=== PATIENT | female | born 1950 | race African-American/Black ===

== ENCOUNTER 2018-03-18 18:50 | Emergency (ER) | payer OTHER ==
[~2018-03-18] VITALS: Ht 162.6 cm; Wt 83.9 kg
--- NOTE | ~2018-03-18 | EKG ---
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: WILLAM : 1950 Requested By: America Maria Order Number: [id number] MD: Jun Perez Measurements Intervals Roff Rate: 79 P: 53 NH: 170 QRS: -24 QRSD: 86 T: 22 QT: 391 QTc: 449 Interpretive Statements Sinus rhythm Left ventricular hypertrophy Nonspecific T wave abnormality Compared to ECG 01/10/2017 12:27:26 No significant change was found Electronically Signed On 03-19-2018 16:37:35 CDT by Jun Perez [email or web address] <ELECTRONICALLY SIGNED> By: Jun Perez MD, [facility] 03/19/18 1637 1912 12 Jun Perez MD, FACC /EPI
[~2018-03-18 18:50] MED LIST: ANTIVERT25 MG PO; AVELOX 400 MG400 MG PO; NOHOMEMEDICATIONS; PROVENTIL INH; ZOFRAN ODT4 MG PO
[2018-03-18 19:47] LABS: ABSOLUTE NEUTROPHILS 7.2 thou/uL (1.4-8.2); BASOPHILS 0.2 % (0.0-2.0); EOSINOPHILS 1.2 % (0.0-3.0); HEMATOCRIT 36.8 % (37.0-47.0); HEMOGLOBIN 11.8 gm/dL (12.0-15.0); LYMPHOCYTES 25.6 % (24.0-44.0); MCH 25.5 pg (26.0-34.0); MCHC 32.2 g/dL (28.0-37.0); MCV 79.3 fL (80.0-100.0); MONOCYTES 5.4 % (1.0-8.0); PLATELET COUNT 351 thou/uL (150-400); POLYS 67.6 % (36.0-66.0); RBC 4.64 mil/uL (4.20-5.00); WBC 10.6 thou/uL (4.0-11.0)
[2018-03-18 19:48] LABS: URINE BILIRUBIN NEGATIVE (Negative); URINE BLOOD 2+ (Negative); URINE CLARITY CLEAR; URINE COLOR YELLOW; URINE GLUCOSE-RANDOM* NEGATIVE (Negative); URINE KETONES NEGATIVE (Negative); URINE LEUKOCYTES 3+ (Negative); URINE NITRITE NEGATIVE (Negative); URINE PROTEIN (DIPSTICK) NEGATIVE (Negative); URINE SPECIFIC GRAVITY <= 1.005 (1.005-1.035); URINE UROBILINOGEN 0.2 E.U./dl (0.2-1.0)
[2018-03-18 19:55] LABS: CALCIUM 8.8 mg/dL (8.5-10.1); CREATININE 1.1 mg/dL (0.6-1.0); POTASSIUM 3.4 mmol/L (3.5-5.1)
[2018-03-18 20:03] LABS: CASTS None Seen /LPF (None Seen); CRYSTALS None Seen /LPF (None Seen); SQUAMOUS 4-10 Moderate /LPF (0-3); URINE RBC 0-2 Rare /HPF (0-2); URINE WBC 6-15 Few /HPF (0-5)
[2018-03-18 20:04] LABS: BACTERIA 1-9 Few /HPF (None Seen)
[2018-03-18] MEDS ORDERED: NAPROSYN500 MG PO (20:12)
[2018-03-18] MEDS ORDERED: NORFLEX100 MG PO (20:12)
[2018-03-18 20:25] VITALS: BP 163/89
== END 2018-03-18 21:11 | disposition home or self-care (01) ==
LOC: ER 18:50
PROVIDERS: Physician Assistant
DX: S39.012A Strain of muscle, fascia and tendon of lower back, initial encounter (principal); F17.210 Nicotine dependence, cigarettes, uncomplicated; Z90.710 Acquired absence of both cervix and uterus; Z88.5 Allergy status to narcotic agent; X58.XXXA Exposure to other specified factors, initial encounter; Y93.89 Activity, other specified; Y92.89 Other specified places as the place of occurrence of the external cause; Y99.8 Other external cause status